=== PATIENT | female | born 1935 | race Caucasian/White ===

== ENCOUNTER 2020-06-27 17:47 | Emergency (ER) | payer MEDICARE, OTHER, MEDICAID, SELFPAY ==
[2020-06-27 17:48] VITALS: BP 129/60; PULSE 77; RESP 16; TEMP 36.9; O2SAT 97; BMI 21.6
--- NOTE | 2020-06-27 18:05 | ED.DCSUM_ITS ---
History of Present Illness Chief Complaint: Foreign Body Informant: Patient, Family Onset: Today Narrative: 84-year-old female with past medical history of dementia presents with concern for choking. Patient brought in by EMS after having a choking episode at a local shelter. Was able to expel some of the food however now is unable to swallow her saliva. No respiratory symptoms. Patient does complain of some retrosternal chest pain. Denies any vomiting. No history of dysphasia. Patient has ill fitting dentures and was not wearing her dentures at the time of eating beef and noodles. Past Medical History - Allergies and Home Meds Allergies/Adverse Reactions: Allergies codeine Allergy (Verified 06/27/20 17:54) Hives Sulfa (Sulfonamide Antibiotics) Allergy (Verified 06/27/20 17:54) Hives Primary Care Physician: Yusef Betancourt MD [Primary Care Provider] - 2 Days Past Medical History: - - Dementia Surgical History: noncontributory Lives: Detention Smoking Status: Former smoker Alcohol: None Drugs: None Review of Systems General: Denies: Chills, Fever, Sweats Eyes: Denies: Visual changes - bilaterally, Diplopia ENT: Denies: Rhinorrhea, Sore throat Cardiovascular: Denies: Chest pain, Palpitations Respiratory: Denies: Dyspnea, Cough, Dyspnea on exertion Gastrointestinal: Denies: Abdominal pain, Nausea, Vomiting, Diarrhea, Melena, Hematochezia Genitourinary: Denies: Dysuria, Hematuria, Frequency Musculoskeletal: Denies: Back pain, Extremity Pain Skin: Denies: Rash, Wounds Neurological: Denies: Headache, Weakness, Numbness Physical Exam Vital Signs/Narrative: Vital Signs Temp Pulse Resp BP Pulse Ox 06/27/20 17:48 98.5 F 77 16 129/60 H 97 General: Well nourished, Well developed, No Acute Distress Head: Normocephalic, Atraumatic Eyes: Perrl, EOMI ENT: Moist mucous membranes, No rhinorrhea, - - Drooling. Not tolerating secretions. Neck: Supple, Nontender Cardiovascular: Regular rate, Regular rhythm, No murmurs Respiratory: No distress, CTA bilaterally, Chest nontender Abdomen: Soft, Nontender, Nondistended, Normal bowel sounds Back: Nontender, Normal Inspection Extremities: Nontender, No edema Skin: Normal color, No rash Neurological: Alert, Oriented x3, Cranial nerves II-XII grossly intact, Normal Strength, Normal Sensation Psychological: Normal affect, Normal Mood Diagnostic/Tx/Re-eval Clinical Impression(s) from Imaging Studies Chest X-Ray 06/27/20 18:38 IMPRESSION: Shallow inspiration. Mild atelectatic versus chronic changes of the left lung base without other major consolidation or a substantial pleural effusion. Electronically Signed: Preethi Chiang MD at 18:51 EDT , Service support , Laboratory Data 06/27/20 06/27/20 18:40 18:40 WBC 9.2 RBC 4.38 Hgb 14.0 Hct 44.3 MCV 101.1 H MCH 32.0 MCHC 31.6 L RDW Std Deviation 53.7 H RDW Coeff of Francy 14.5 Plt Count 221 MPV 10.1 Immature Gran % (Auto) 0.400 Neut % (Auto) 78.2 H Lymph % (Auto) 13.3 L [place] % (Auto) 6.4 Eos % (Auto) 1.5 Baso % (Auto) 0.2 Absolute Neuts (auto) 7.2 Absolute Lymphs (auto) 1.22 Nucleated RBC % 0 Sodium 140 Potassium 4.1 Chloride 106 Carbon Dioxide 31.0 Anion Gap 3 L BUN 24 H Creatinine 0.77 Estim Creat Clear Calc 37.45 Est GFR (MDRD) Af Amer 92 Est GFR (MDRD) Non-Af 76 BUN/Creatinine Ratio 31.1 H Glucose 104 Calcium 9.1 - Medical Decision Making Appears well nontoxic. No hypoxemia. Son at the bedside. Patient given fluid bolus and glucagon. Lab work within normal limits. Chest x-ray shows no evidence of aspiration. Patient was able to spit up multiple noodles. Following that she was able to tolerate liquids. Monitored in the department without any vomiting. Discharged home in stable condition. Impression: 1. Esophageal food bolus - resolved ED Disposition - Plan for ED Patient: Disposition: [facility] Facility Instructions: ED Foreign Body Esophageal Rslv Referrals: Yusef Betancourt MD [Primary Care Provider] - 2 Days
[2020-06-27] MEDS: Glucagon 1 MG/ML Syringe IV (18:34)
--- NOTE | 2020-06-27 18:38 | RAD_ITS ---
STUDY: X-RAY CHEST REASON FOR EXAM: Female, 84 years old. FOOD STUCK IN THROAT FROM DINNER TECHNIQUE: 1 view COMPARISON: None. FINDINGS: Shallow inspiration with mild atelectatic versus chronic changes at the left lung base. Otherwise negative for major consolidation or pleural effusion. There is no demonstrated pleural abnormality. Normal size heart. Normal mediastinum and donell. Normal visualized pulmonary arteries. There is atherosclerotic calcification of the aortic arch with tortuosity. There is demineralization of the osseous structures. 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 There is no demonstrated abnormality of the visualized soft tissue structures of the upper abdomen. Surgical whitney in the right axilla. RAD/Chest 1 View (Portable) IMPRESSION: Shallow inspiration. Mild atelectatic versus chronic changes of the left lung base without other major consolidation or a substantial pleural effusion. Electronically Signed: Preethi Chiang MD at 18:51 EDT , Service support ,
[2020-06-27 18:56] LABS: Absolute Lymphocyte Count 1.22 X10^3/uL (0.83-4.51); Absolute Neutrophil Count 7.2 X10^3/uL (2.0-7.7); Basophil# 0.02 X10^3/uL; Basophil% 0.2 % (0-1); Eosinophil# 0.14 X10^3/uL; Eosinophils% 1.5 % (0-5); Hematocrit 44.3 % (37-47); Lymphocyte # 1.22 X10^3/ul (4.0); Lymphocyte % 13.3 % (19-41); Mean Corp Hgb Conc 31.6 g/dL (32-36); Mean Corpuscular Volume 101.1 fL (81-99); Mean Platelet Vol. 10.1 fl (6.2-12.0); Monocyte# 0.59 X10^3/uL; Monocyte% 6.4 % (0-10); NRBC Flagged by Analyzer 0 % (0-5); Neutrophil # 7.17 X10^3/uL (2.7-7.7); Neutrophil % 78.2 % (47-70); Platelet Count 221 K/mm3 (150-450); RBC Distribution Width CV 14.5 % (11.6-14.6); RBC Distribution Width SD 53.7 fl (35.1-43.9); Red Blood Count 4.38 M/mm3 (4.2-5.4); White Blood Count 9.2 K/mm3 (4.4-11.0)
[2020-06-27 19:14] LABS: Anion Gap 3 (5-15); BUN 24 mg/dL (7-18); BUN/Creat Ratio 31.1 RATIO (10-20); Calcium,Total 9.1 mg/dL (8.5-10.1); Chloride 106 mmol/L (98-107); Creatinine, Serum 0.77 mg/dL (0.55-1.02); EST Glomerular Filtration Rate 76 mL/min (>60); Est Glom Filt Rate - Afr Amer 92 mL/min (>60); Estimated Creatinine Clearance 37.45 ml/min; Glucose 104 mg/dL (74-106); Potassium 4.1 mmol/L (3.5-5.1); Sodium Level 140 mmol/L (136-145)
[2020-06-27 19:59] VITALS: BP 115/67; PULSE 84; RESP 16; O2SAT 98
[2020-06-27 21:11] VITALS: BP 125/48; PULSE 87; RESP 18; O2SAT 97
[2020-06-27 21:38] VITALS: BP 122/61; PULSE 90; RESP 18; O2SAT 97
== END 2020-06-27 21:39 | disposition skilled nursing facility (03) ==
PROVIDERS: Emergency Provider Emergency Medicine; PCP Family Medicine
DX: T18.128A Food in esophagus causing other injury, initial encounter (principal); F03.90 Unspecified dementia, unspecified severity, without behavioral disturbance, psychotic disturbance, mood disturbance, and anxiety; Z87.891 Personal history of nicotine dependence
CPT/HCPCS: 71045; 80048; 85025; 96361; 96374; 99285; A4216; J1610

== ENCOUNTER 2020-06-30 18:15 | Emergency (ER) | payer MEDICARE, OTHER, MEDICAID, SELFPAY ==
[2020-06-30 18:16] VITALS: BP 126/64; PULSE 82; RESP 18; TEMP 36.8; O2SAT 99; BMI 24.6
[2020-06-30 18:26] VITALS: O2SAT 97
--- NOTE | 2020-06-30 18:29 | ED.DCSUM_ITS ---
History of Present Illness Chief Complaint: Shortness of Breath Informant: Family Narrative: 84-year-old female presenting with shortness of breath. She states she was doing physical therapy. Patient is a poor historian secondary to Parkinson's and dementia. It was noted by family that the patient was here a couple of days ago after choking episode on beef and noodles. She has not had a fever or cough since then. Family member states that he did not get much more information than she felt like she was short of breath and she felt like her heart was going to explode. She is not having any pain now. Past Medical History - Allergies and Home Meds Allergies/Adverse Reactions: Allergies codeine Allergy (Verified 06/27/20 17:54) Hives Sulfa (Sulfonamide Antibiotics) Allergy (Verified 06/27/20 17:54) Hives Primary Care Physician: Yusef Betancourt MD [Primary Care Provider] - Past Medical History: - - Parkinson's disease, dementia, hyperlipidemia, hypertension Surgical History: noncontributory Lives: Halfway Smoking Status: Never smoker Alcohol: None Drugs: None Review of Systems ROS: Unable to Obtain - Unable to obtain other than she was having shortness of breath and chest discomfort. Physical Exam Vital Signs/Narrative: Vital Signs Temp Pulse Resp BP Pulse Ox 06/30/20 18:16 98.2 F 82 18 126/64 H 99 Inital Vital Signs reviewed: Yes General: Well nourished, No Acute Distress Head: Normocephalic, Atraumatic Eyes: Perrl, EOMI ENT: Moist mucous membranes, No rhinorrhea Cardiovascular: Regular rate, Regular rhythm Respiratory: No distress, CTA bilaterally Abdomen: Soft, Nontender Extremities: Nontender. Negative for: Calf Tenderness Skin: Normal color, No rash. Negative for: Cyanosis, Diaphoresis Neurological: Alert, Disoriented Diagnostic/Tx/Re-eval Clinical Impression(s) from Imaging Studies Chest X-Ray 06/30/20 18:42 IMPRESSION: Left basilar atelectasis/focal infiltrate. Electronically Signed: Juan Ford DO at 19:17 EDT Tel [phone], Service support , Chest CTA 06/30/20 19:12 IMPRESSION: Mild right lower lobe pulmonary embolism. No arterial dissection. Small effusions. Mild wedge compression of T8 is moderate to severe compression of T11 and T12. Mild patchy groundglass haziness in the lungs. Bilateral hydronephrosis. Hiatal hernia. Electronically Signed: Juan Ford DO at 19:54 EDT Tel [phone], Service support , ADDENDUM: 06/30/202003 IMPRESSION: Mild right lower lobe pulmonary embolism. No arterial dissection. Small effusions. Mild wedge compression of T8 is moderate to severe compression of T11 and T12. Mild patchy groundglass haziness in the lungs. Bilateral hydronephrosis. Hiatal hernia. N.B. : The above information has been verbally conveyed by Juan Ford DO to Kyler Keane DO, MD, on 06/30/2020 19:57:52 (ET). Electronically Signed: Juan Ford DO at 19:54 EDT Tel [phone], Service support , Laboratory Data 06/30/20 06/30/20 06/30/20 18:34 18:34 18:34 WBC 7.9 RBC 3.80 L Hgb 12.1 Hct 38.7 MCV 101.8 H MCH 31.8 MCHC 31.3 L RDW Std Deviation 54.3 H RDW Coeff of Francy 14.4 Plt Count 198 MPV 9.8 Immature Gran % (Auto) 0.400 Neut % (Auto) 71.5 H Lymph % (Auto) 17.4 L [place] % (Auto) 8.0 Eos % (Auto) 2.3 Baso % (Auto) 0.4 Absolute Neuts (auto) 5.6 Absolute Lymphs (auto) 1.37 Nucleated RBC % 0 D-Dimer Quant (PE/DVT) 3.18 H* Sodium 144 Potassium 3.8 Chloride 111 H Carbon Dioxide 28.0 Anion Gap 5 BUN 22 H Creatinine 0.74 Estim Creat Clear Calc 35.88 Est GFR (MDRD) Af Amer 96 Est GFR (MDRD) Non-Af 79 BUN/Creatinine Ratio 29.5 H Glucose 114 H Calcium 8.5 Troponin I < 0.015 Urine Color Urine Clarity Urine pH Ur Specific [place] Urine Protein Urine Glucose (UA) Urine Ketones Urine Occult Blood Urine Nitrite Urine Bilirubin Urine Urobilinogen Ur Leukocyte Esterase Urine RBC Urine WBC Ur Squamous Epith Cells Urine Bacteria Urine Mucus 06/30/20 20:05 WBC RBC Hgb Hct MCV MCH MCHC RDW Std Deviation RDW Coeff of Francy Plt Count MPV Immature Gran % (Auto) Neut % (Auto) Lymph % (Auto) [place] % (Auto) Eos % (Auto) Baso % (Auto) Absolute Neuts (auto) Absolute Lymphs (auto) Nucleated RBC % D-Dimer Quant (PE/DVT) Sodium Potassium Chloride Carbon Dioxide Anion Gap BUN Creatinine Estim Creat Clear Calc Est GFR (MDRD) Af Amer Est GFR (MDRD) Non-Af BUN/Creatinine Ratio Glucose Calcium Troponin I Urine Color Yellow Urine Clarity Clear Urine pH 6.5 Ur Specific [place] 1.010 Urine Protein Negative Urine Glucose (UA) Normal Urine Ketones Negative Urine Occult Blood Negative Urine Nitrite Negative Urine Bilirubin Negative Urine Urobilinogen Normal Ur Leukocyte Esterase Negative Urine RBC 0 SEEN Urine WBC 0 SEEN Ur Squamous Epith Cells 0 SEEN Urine Bacteria 0 SEEN Urine Mucus 0 SEEN - Rhythm Strip Rhythm Strip: Sinus Rhythm Rate: 78 - EKG Initial EKG Interpretation: Sinus Rhythm, RBBB - Medical Decision Making Patient seen and evaluated on arrival. Vital signs are stable and she is afebrile. She is 100% on room air on my evaluation. She complained of some chest pain and shortness of breath while she was doing physical therapy however she is a poor formant. Lungs are clear to auscultation. Heart rate is regular rate and rhythm. Patient's EKG is sinus rhythm without any obvious signs of ischemia. Initial lab work is all normal. Urinalysis is normal which was performed at the request of her family member. Patient's d-dimer was elevated so she did have CTA of the chest which showed a small right lower lobe PE. I discussed this with the patient's PCP Dr. Betancourt who recommended starting her on 2.5 mg of Eliquis twice daily. She was given first dose in the ED. We did discuss the fact that she is a fall risk because she is still rehabbing. I also discussed this with her family member and they were both still amenable to starting the medication. She will discharged home in stable condition. ED Disposition - Plan for ED Patient: Disposition: Home or Assisted Living Instructions: Pulmonary Embolism Prescriptions: Apixaban [Eliquis] 2.5 mg PO BID #[id number] tab Referrals: Yusef Betancourt MD [Primary Care Provider] -
--- NOTE | 2020-06-30 18:33 | EKG12_ITS ---
Test Reason : SOB Blood Pressure : / mmHG Vent. Rate : 078 BPM Atrial Rate : 078 BPM P-R Int : 000 ms QRS Dur : 134 ms QT Int : 430 ms P-R-T Axes : 000 -26 -22 degrees QTc Int : 490 ms Normal sinus rhythm Right bundle branch block Abnormal ECG Confirmed by SEAN MEYER, BOOM ([id number]), acquisitions editor NATHAN MEDRANO ([id number]) on 07/04/2020 9:56:50 AM Referred By: ELISEO Confirmed By:BOOM ESTRADA MD
--- NOTE | 2020-06-30 18:35 | NURSING ---
NO OLD EKGS
[2020-06-30 18:38] VITALS: O2SAT 99
--- NOTE | 2020-06-30 18:42 | RAD_ITS ---
STUDY: X-RAY CHEST REASON FOR EXAM: Female, 84 years old. SOB AFTER PHYSICAL THERAPY TODAY. PT WAS UNABLE TO COOPERATE FOR CHEST X-RAY. TECHNIQUE: Frontal view COMPARISON: June 27, 2020 FINDINGS: The lungs are not fully expanded. Mild left basilar atelectasis/focal infiltrate. Normal size heart. Normal mediastinum and donell. Normal visualized pulmonary arteries. Normal visualized aortic arch and descending thoracic aorta. Degenerative changes of the thoracic spine. Degenerative changes left shoulder. Surgical clips over the right axilla. There is no demonstrated abnormality of the visualized soft tissue structures of the upper abdomen. RAD/Chest 1 View (Portable) IMPRESSION: Left basilar atelectasis/focal infiltrate. Electronically Signed: Juan Ford DO at 19:17 EDT Tel [phone], Service support ,
[2020-06-30 18:47] LABS: Absolute Lymphocyte Count 1.37 X10^3/uL (0.83-4.51); Absolute Neutrophil Count 5.6 X10^3/uL (2.0-7.7); Basophil# 0.03 X10^3/uL; Basophil% 0.4 % (0-1); Eosinophil# 0.18 X10^3/uL; Eosinophils% 2.3 % (0-5); Hematocrit 38.7 % (37-47); Hemoglobin 12.1 g/dL (12.0-15.0); Lymphocyte # 1.37 X10^3/ul (4.0); Lymphocyte % 17.4 % (19-41); Mean Corp Hgb Conc 31.3 g/dL (32-36); Mean Corpuscular Hgb 31.8 pg (27.0-32.0); Mean Corpuscular Volume 101.8 fL (81-99); Mean Platelet Vol. 9.8 fl (6.2-12.0); Monocyte# 0.63 X10^3/uL; NRBC Flagged by Analyzer 0 % (0-5); Neutrophil # 5.63 X10^3/uL (2.7-7.7); Neutrophil % 71.5 % (47-70); Platelet Count 198 K/mm3 (150-450); RBC Distribution Width CV 14.4 % (11.6-14.6); RBC Distribution Width SD 54.3 fl (35.1-43.9); White Blood Count 7.9 K/mm3 (4.4-11.0)
--- NOTE | 2020-06-30 18:53 | ED.RN ---
243 mg given by EMS in addition to pt's daily 81mg asa [employer]. Dr. Christianson notified at this time
[2020-06-30 19:03] LABS: Anion Gap 5 (5-15); BUN 22 mg/dL (7-18); BUN/Creat Ratio 29.5 RATIO (10-20); Calcium,Total 8.5 mg/dL (8.5-10.1); Chloride 111 mmol/L (98-107); Creatinine, Serum 0.74 mg/dL (0.55-1.02); EST Glomerular Filtration Rate 79 mL/min (>60); Est Glom Filt Rate - Afr Amer 96 mL/min (>60); Estimated Creatinine Clearance 35.88 ml/min; Glucose 114 mg/dL (74-106); Potassium 3.8 mmol/L (3.5-5.1); Sodium Level 144 mmol/L (136-145)
[2020-06-30 19:06] LABS: D-Dimer Quantitative (DVT/PE) 3.18 FEU/ug/m (0.27-0.49)
--- NOTE | 2020-06-30 19:12 | CT_ITS ---
We are attempting to reach an attending provider to discuss findings. An addendum with communication details will be sent when the communication is complete. STUDY: CTA CHEST REASON FOR EXAM: Female, 84 years old. CP/SOB. Hx of HLD and Parkinson''s. RADIATION DOSAGE (If Supplied By Facility): CTDIvol = ( 10.25 ) mGy, DLP = ( 312.41 ) mGycm TECHNIQUE: The examination was performed with the intravenous administration of IV 75mL Isovue-370. Post-processing of the angiographic images was performed, with multiplanar reformation and 3D reconstruction. Individualized dose optimization techniques were used for this CT. COMPARISON: None. FINDINGS: Normal enhancement of the main pulmonary artery and right and left pulmonary arteries. There are filling defects of the right lower lobe peripheral pulmonary arteries. This is compatible with pulmonary embolism. Calcified thoracic aorta and visualized great vessels. There is no demonstrated aortic dissection. Normal heart and pericardium. Normal mediastinum. Normal hilar regions. Normal visualized trachea and bronchi. The lungs are well expanded. Bilateral patchy groundglass haziness in the lungs. Small effusions bilaterally, left slightly more than right. Normal chest wall structures. Degenerative vertebral changes. Mild wedge compression of T8 is moderate to severe compression of T11 and T12. Bilateral hydronephrosis. Hiatal hernia. CT/CTA Chest W/WO Contrast IMPRESSION: Mild right lower lobe pulmonary embolism. No arterial dissection. Small effusions. Mild wedge compression of T8 is moderate to severe compression of T11 and T12. Mild patchy groundglass haziness in the lungs. Bilateral hydronephrosis. Hiatal hernia. Electronically Signed: Juan Ford DO at 19:54 EDT Tel [phone], Service support ,
[2020-06-30 20:18] LABS: Bacteria 0 SEEN /hpf (None Seen); Mucous, Urine 0 SEEN /hpf (<or=2+); Red Blood Cells-Urine 0 SEEN /hpf (0-5); Squamous Epithelial Cells - UA 0 SEEN /hpf (5-10); White Blood Cells 0 SEEN /hpf (0-5)
[2020-06-30 20:26] VITALS: BP 121/58; PULSE 71; RESP 13; O2SAT 95
[2020-06-30 20:32] LABS: Color, Urine Yellow (Yellow); Glucose, Dipstick Normal (Normal); Ketone-Dipstick Negative (Negative); Leukocyte Esterase-Dipstick Negative /ul (Negative); Nitrite-Dipstick Negative (Negative); Occult Blood-Urine Negative /ul (Negative); Protein-Dipstick Negative (Negative); Urine Bilirubin Dipstick Negative (Negative); Urine Clarity Clear (Clear); Urine Urobilinogen Normal (Normal); Urine pH 6.5 (5.0 - 8.0)
[2020-06-30] MEDS: APIXABAN 2.5 MG TABLET PO (20:48)
[2020-06-30 20:58] VITALS: BP 134/56; PULSE 68; RESP 18; O2SAT 96
--- NOTE | 2020-06-30 20:59 | ED.RN ---
REPORT CALLED TO [facility]. RESULTS PACKET SENT WITH SON.
== END 2020-06-30 20:59 | disposition home or self-care (01) ==
PROVIDERS: Emergency Provider Student in an Organized Health Care Education/Training Program; PCP Family Medicine
DX: I26.99 Other pulmonary embolism without acute cor pulmonale (principal); G20 Parkinson's disease; F02.80 Dementia in other diseases classified elsewhere, unspecified severity, without behavioral disturbance, psychotic disturbance, mood disturbance, and anxiety; I10 Essential (primary) hypertension; E78.5 Hyperlipidemia, unspecified; Z79.899 Other long term (current) drug therapy
CPT/HCPCS: 71045; 71275; 80048; 81001; 84484; 85025; 85379; 93005; 96360; 96361; 99285; Q9967; A4216